=== PATIENT | male | born 1960 | race Two or more races ===

== ENCOUNTER 2023-11-26 19:48 | Emergency (ER) | payer BC, OTHER ==
[~2023-11-26] VITALS: Ht 172.7 cm; Wt 63.5 kg
[2023-11-26] MEDS ORDERED: EPINEPHRINE (1:1000) 1 MG/ML AMPUL ONE (20:08)
[2023-11-26] MEDS ORDERED: methylPREDNISolone SOD SUCC 125 MG/2ML VIAL ONE (20:09)
[2023-11-26] MEDS: methylPREDNISolone SOD SUCC 125 MG/2ML VIAL IV ONE (20:17)
[2023-11-26] MEDS: EPINEPHRINE (1:1000) 1 MG/ML AMPUL SUBCUT ONE (20:17)
[2023-11-26 20:20] VITALS: O2SAT 95
[2023-11-26] MEDS: IPRATROPIUM NEB FS 0.5 MG/2.5 ML AMPUL.NEB NEB ONE (20:20)
[2023-11-26] MEDS: ALBUTEROL FS 2.5 MG/3 ML VIAL.NEB CONTNEB ONE (20:20)
[2023-11-26] MEDS ORDERED: IPRATROPIUM NEB FS 0.5 MG/2.5 ML AMPUL.NEB ONE (20:23)
[2023-11-26] MEDS ORDERED: ALBUTEROL FS 2.5 MG/3 ML VIAL.NEB ONE ×2 (20:23→22:05)
[2023-11-26 20:40] VITALS: O2SAT 100
[2023-11-26 21:15] LABS: BASOPHILS % (AUTO) 0.5 % (0.0-2.0); EOSINOPHILS % (AUTO) 4.9 % (0.0-6.0); HEMATOCRIT 48 % (39-51); HEMOGLOBIN 15.9 g/dL (13.5-17.5); LYMPHOCYTES % (AUTO) 14.9 % (20.0-44.0); MEAN CORPUSCULAR HEMOGLOBIN 30 PG (26.0-33.0); MEAN CORPUSCULAR HGB CONC 33 g/dl (31.0-36.0); MEAN CORPUSCULAR VOLUME 92 fL (80-96); NEUTROPHILS % (AUTO) 72.7 % (43.0-81.0); PLATELET COUNT (AUTO) 436 K/uL (150-450); RED BLOOD CELL COUNT(AUTO) 5.22 MIL/uL (4.5-6.0); RED CELL DISTRIBUTION WIDTH 13.2 % (11.5-15.0); WHITE BLOOD COUNT (AUTO) 14.9 K/uL (4.3-11.0)
[2023-11-26 21:16] LABS: BASOPHILS # (AUTO) 0.1 K/uL (0.0-0.2); EOSINOPHILS # (AUTO) 0.7 K/uL (0.0-0.7); LYMPHOCYTES # (AUTO) 2.2 K/uL (0.8-4.8); NEUTROPHILS # (AUTO) 10.8 K/uL (1.8-8.9)
[2023-11-26] MEDS ORDERED: PRED50TA PO (21:24)
[2023-11-26] MEDS ORDERED: ALBU8.5H8 INH (21:24)
[2023-11-26 21:40] LABS: CALCIUM, SERUM 8.4 mg/dL (8.5-10.1); CARBON DIOXIDE 26 mmol/L (21-32); CHLORIDE 103 mmol/L (98-107); CREATININE 1.2 mg/dL (0.6-1.3); GLUCOSE 116 mg/dL (74-106); POTASSIUM 3.7 mmol/L (3.5-5.1); SODIUM SERUM 140 mmol/L (136-145); UREA NITROGEN, BLOOD 15 mg/dL (7-18)
[2023-11-26] MEDS ORDERED: Magnesium 1GM/D5W 100ML PREMIX 100 ML IV ONE (21:40)
[2023-11-26 21:48] LABS: ALANINE AMINOTRANSFERASE 37 U/L (12-78); ALBUMIN 3.7 g/dL (3.4-5.0); ALKALINE PHOSPHATASE 101 U/L (46-116); ASPARTATE AMINOTRANSFERASE 5 U/L (15-37); BILIRUBIN,DIRECT 0.1 mg/dL (0.0-0.2); BILIRUBIN,TOTAL 0.5 mg/dL (0.2-1.0)
[2023-11-26] MEDS: Magnesium 1GM/D5W 100ML PREMIX 200 ML IV ONE (21:50)
[2023-11-26] MEDS: ALBUTEROL FS 2.5 MG/3 ML VIAL.NEB NEB ONE (22:01)
[2023-11-26 22:05] VITALS: O2SAT 96
[2023-11-26 22:20] VITALS: O2SAT 100
[2023-11-26 22:34] VITALS: BP 151/79; TEMP 99.1; O2SAT 97
[2023-11-27 09:49] LABS: ABG BASE EXCESS 0.3 mmol/L; ABG OXYGEN SATURATION 97.6 % (92.0-98.5); ABG PCO2 44.7 mmHg (35.0-45.0); ABG PO2 102.5 mmHg (75.0-100.0); ABG TOTAL HEMOGLOBIN 16.7 G/dL (13.5-18.0); COHb 0.1 % (0.5-1.5); MetHb 0.3 % (0.0-1.5); O2Hb 97.2 % (94.0-97.0); SITE, ABG Left Radial
== END 2023-11-26 22:35 | disposition home or self-care (01) ==
LOC: ER 19:50
DX: J44.1 Chronic obstructive pulmonary disease with (acute) exacerbation (principal); F17.200 Nicotine dependence, unspecified, uncomplicated; Z20.822 Contact with and (suspected) exposure to COVID-19
CPT/HCPCS: 99285; 96372; 96365; 96375; 93005 ×2; 82803; 87804 ×2; 71045; 85025; 80048; 80076; 36415; 84484; 36600 ×2; 94640 ×2; J0171; J2930; A4223; J3475